=== PATIENT | male | born 1990 | race Asian ===

== ENCOUNTER 2018-06-03 16:51 | Emergency (ER) | payer OTHER ==
[~2018-06-03] VITALS: Ht 165.1 cm; Wt 74.8 kg
[2018-06-03 17:50] VITALS: BP 125/81
== END 2018-06-03 18:29 | disposition home or self-care (01) ==
LOC: ER 16:56
DX: T16.1XXA Foreign body in right ear, initial encounter (principal); X58.XXXA Exposure to other specified factors, initial encounter; Y93.89 Activity, other specified; Y92.89 Other specified places as the place of occurrence of the external cause; Y99.8 Other external cause status

== ENCOUNTER 2018-12-15 10:34 | Emergency (ER) | payer OTHER ==
[~2018-12-15] VITALS: Ht 165.1 cm; Wt 81.6 kg
[2018-12-15 10:42] VITALS: BP 123/53
[2018-12-15] MEDS ORDERED: TETANUS-DIPTH-ACEL PERTUSSIS 0.5ML SYRG IM ONE (12:15)
== END 2018-12-15 12:46 | disposition home or self-care (01) ==
LOC: ER 10:40
DX: L03.012 Cellulitis of left finger (principal)
CPT/HCPCS: 90471; 90715

== ENCOUNTER 2021-07-28 10:51 | Emergency (ER) | payer BC, OTHER ==
[~2021-07-28] VITALS: Ht 165.1 cm; Wt 81.6 kg
[2021-07-28 14:05] VITALS: BP 148/96
[2021-07-28] MEDS ORDERED: PRED20TA2 PO (15:50)
[2021-07-28] MEDS ORDERED: IBUP800T27 PO (15:50)
== END 2021-07-28 16:44 | disposition home or self-care (01) ==
LOC: ER 10:51
DX: S16.1XXA Strain of muscle, fascia and tendon at neck level, initial encounter (principal); R51.9 Headache, unspecified; V43.52XA Car driver injured in collision with other type car in traffic accident, initial encounter; Y93.89 Activity, other specified; Y92.410 Unspecified street and highway as the place of occurrence of the external cause; Y99.8 Other external cause status
CPT/HCPCS: 70450; 72040